=== PATIENT | female | born 1980 | race African-American/Black ===

== ENCOUNTER 2021-04-17 23:10 | Emergency (ER) | payer MEDICAID ==
[~2021-04-17] VITALS: Ht 160 cm; Wt 112.0 kg
[2021-04-18 00:23] LABS: BASOPHILS % 0.8 % (0.0-2.0); EOSINOPHILS % 1.3 % (0.0-5.0); HEMATOCRIT. 35.6 % (36.0-48.0); HEMOGLOBIN. 11.6 g/dL (12.0-16.0); LYMPHOCYTES % 23.6 % (20.0-50.0); MEAN CORPUSCULAR VOLUME 82.8 fL (81.0-99.0); MEAN PLATELET VOLUME 8.3 fl (7.4-10.4); MONOCYTES % 7.3 % (2.0-8.0); PLATELET 332 x1000/uL (130-400); RED CELL DISTRIBUTION WIDTH 15.3 % (11.6-14.6)
[2021-04-18 00:40] LABS: CHLORIDE 104 mEq/L (98-107)
[2021-04-18] MEDS ORDERED: POTASSIUM CHLORIDE 20MEQ TABLET SR PO NR (01:15)
[2021-04-18 01:25] VITALS: BP 156/78
== END 2021-04-18 01:26 | disposition home or self-care (01) ==
LOC: ER 23:10
DX: R55 Syncope and collapse (principal); E83.41 Hypermagnesemia; I10 Essential (primary) hypertension
CPT/HCPCS: 36415; 80053; 81025; 83735; 85025; 93005; 99284